=== PATIENT | male | born 1980 | race Caucasian/White ===

== ENCOUNTER 2021-12-31 16:55 | Emergency (ER) | payer OTHER, SELFPAY ==
--- NOTE | ~2021-12-31 | CT_ITS ---
EXAMINATION: CT HEAD WITHOUT CONTRAST CLINICAL INFORMATION: Right posterior headache. COMPARISON: No relevant prior imaging. TECHNIQUE: Contiguous axial imaging was performed from the skull base to vertex without intravenous administration of contrast. This CT examination was performed using dose optimization techniques as appropriate, variously including the following: *Automated exposure control *Adjustment of mA and/or kV according to patient size (this includes techniques or standardized protocols for targeted exams where dose is matched to indication/reason for exam; i.e. extremities or head) *Use of iterative reconstruction technique DLP: 828 mGy-cm FINDINGS: There is no acute intracranial hemorrhage or abnormal extra-axial collection. No intracranial mass effect or midline shift. Lateral and third ventricles are normal. No hydrocephalus. Chavez-white matter differentiation is grossly preserved and there is no evidence of acute territorial infarct. The calvarium and skull base are intact. Mastoid air cells and middle ear cavities are well aerated. No active paranasal sinus disease. CT/CT head/brain wo IV con IMPRESSION: Unremarkable CT scan of the head. No evidence of acute territorial infarct or hemorrhage. No intracranial mass effect or hydrocephalus.
[2021-12-31 17:46] VITALS: BP 163/79; PULSE 64; RESP 16; TEMP 36.8; O2SAT 97; BMI 43.4
[2021-12-31 17:52] VITALS: BP 153/87
[2021-12-31 18:42] VITALS: BP 154/94; PULSE 63; RESP 19; TEMP 36.2; O2SAT 96
--- NOTE | 2021-12-31 18:53 | ED.HA ---
HPI - Headache General Chief Complaint: Headache Stated Complaint: elevated bP's last 190/121 Time Seen by Provider: 12/31/21 18:38 Source: patient Mode of arrival: ambulatory Limitations: no limitations History of Present Illness HPI Narrative: 41 yo male with history of migraine headaches, HTN, anxiety who presents to the ER for evaluation of a throbbing right sided posterior headache for the last 6 days. He has been under significant stress at home. His cousin just last week and his daughter found the body. He reports a history of migraines but this is much different than his previous migraines. It is not worsened is regular migraines are much different. He states he has throbbing pain in his right occipital area, does not radiate and is mostly been constant for the last several days. He has tried taking his naproxen and sumatriptan with minimal relief. He reports some vision changes that are consistent with his previous migraines. No weakness, numbness, tingling. He states his blood pressure has been significantly elevated with the increased stress in his life. BP at home was 190/120. He has been taking his propranolol as directed. He has also been taking his prescribed Ativan as needed. MD elicited complaint: headache Pertinent past history: migraines Onset (ago): day(s) Onset description: gradually Location: right and occipital Severity: moderate Quality & Timing: throbbing Exacerbating factors: exertion, movement of head/neck, sitting/standing, light and noise Relieving factors: rest and NSAIDs Associated symptoms: photophobia and sensitivity to sound Treatments prior to arrival: none Related Data Allergies Allergy/AdvReac Type Severity Reaction Status Date / Time Unable to Assess Allergy Unverified 12/31/21 18:39 Review of Systems Review of Systems: Constitutional: No Fever, No Chills ENT/Mouth: No sore throat, No Rhinorrhea Eyes: No Eye Pain, No Swelling, No Redness, +vision changes Cardiovascular: No Chest Pain, No SOB Respiratory: No Cough, No Sputum, No Wheezing, No dyspnea Gastrointestinal: No Nausea, No Vomiting, No Diarrhea, No abdominal Pain Musculoskeletal: No joint pain, No Myalgias Skin: No Skin Lesions, No rash Neuro: No Weakness, No Numbness, No Dizziness, + Headache Psych: + Anxiety/Panic, +Depression, No SI Heme/Lymph: No Bruising, No Lymphadenopathy PMFSH Social History Social History Alcohol intake: current Alcohol intake frequency: other Alcohol type: hard liquor Patient Tobacco Use Status: Never used Tobacco Smoked in Last 30 Days: No Use of substances other than those prescribed or required for medical reasons: Yes Substance Use Type: Marijuana Advance Directives: No Advance Directives Information Provided: Yes Physical Exam Vital Signs: Vital Signs: Last Vital Signs Temp 97.1 F 12/31/21 18:42 Pulse 57 12/31/21 19:46 Resp 19 12/31/21 18:42 BP 138/90 H 12/31/21 19:46 Pulse Ox 96 12/31/21 19:46 O2 Del Method 12/31/21 19:46 BMI result Body Mass Index 43.4 Appearance: Alert. Oriented X3. No acute distress. Eyes: Pupils equal, round and reactive to light. ENT: Pharynx normal. Normal TMs bilaterally, no mastoid tenderness. Neck: Normal inspection. Neck supple. CVS: Normal heart rate and rhythm. Pulses normal. Respiratory: No respiratory distress. Breath sounds normal. Abdomen: Soft and nontender. +BS x4 Skin: Skin warm and dry. Normal skin color. Normal skin turgor. No rashes. Extremities: No lower extremity edema. Neuro: Oriented X 3. No motor deficit. No sensory deficit. CN II-XII intact. Normal speech and cognition. Normal finger to nose and heel to nelson bilaterally. Course Course Course Narrative: 41-year-old male with history of hypertension, anxiety who presents to the ER for evaluation of a throbbing posterior headache on the right side that has been present for several days. Not the worst headache of his life but very different from his typical migraines. He feels like it may be a tension headache due to stress and anxiety at home. Blood pressure reportedly at home was 190/120. Blood pressure here is in the 150 range. His neurologic exam is nonfocal. Will get CT of his head, treat his headache as a migraine and reassess. Reevaluation(s) Reevaluation #1: Patient has improvement in his headache, no longer throbbing. He is feeling better. His CT scan is unremarkable. At this time comfortable discharge home with outpatient follow-up. Critical Care Time Critical Care Time Critical Care Time: No Discharge Plan Discharge Clinical Impression: Headache, Hypertension Patient Disposition: Home, Self-Care Instructions: Tension Headache (ED), Hypertension (ED) Additional Instructions: Continue taking all your medications as prescribed. Recommend following up with your doctor within the next week or 2. Take your blood pressure couple times per day and keep a record for your doctor. Take over the counter excederin migraine or tylenol 975 mg every 6 hours for your headaches. If you develop new or worsening symptoms call 911 or come back to the ER for further evaluation. Referrals: Esvin Langston DO, MD [Primary Care Provider] - Stand Alone Forms: Work/School Release Interventions: ED Discharge Assessment Last Done: 12/31/21 21:05
[2021-12-31 19:46] VITALS: BP 138/90; PULSE 57; O2SAT 96
[2021-12-31] MEDS: Acetaminophen 325 MG TABLET 975 MG PO (20:09)
[2021-12-31] MEDS: SUMAtriptan succinate 6 MG/0.5 ML VIAL SUBCUT (20:09)
[2021-12-31] MEDS: Ondansetron ODT 4 MG TAB.RAPDIS TRANSLINGU (20:09)
== END 2021-12-31 21:06 | disposition home or self-care (01) ==
PROVIDERS: Emergency Provider Student in an Organized Health Care Education/Training Program; PCP Internal Medicine
DX: R51.9 Headache, unspecified (principal); I10 Essential (primary) hypertension; F12.90 Cannabis use, unspecified, uncomplicated; F41.9 Anxiety disorder, unspecified
CPT/HCPCS: 70450; 96372; 99284; J3030